=== PATIENT | female | born 1980 | race Caucasian/White ===

== ENCOUNTER 2019-07-21 22:25 | Emergency (ER) | payer OTHER ==
[2019-07-21 22:38] VITALS: BP 118/73; PULSE 72
[2019-07-21] MEDS ORDERED: Apixaban 5 MG Tab PO ONE (23:18)
--- NOTE | 2019-07-21 23:28 | EDM.PDOC ---
ED HPI GENERAL MEDICAL PROBLEM - General Chief Complaint: General Stated Complaint: leg pain Time Seen by Provider: 07/21/19 23:00 Source of Information: Reports: Patient History Limitations: Reports: No Limitations - History of Present Illness INITIAL COMMENTS - FREE TEXT/NARRATIVE: She is seen in the emergency department for evaluation of a possible blood clot in her right lower leg. She started noting some swelling and pain in the back of her right calf 4 days ago and it has gradually worsened since that time. She thought she had pulled a muscle but the pain seems to be worsening. She does have a history of superficial thrombosis in the past. No history of DVT. She denies any injury that she is aware of. No recent surgery. She did drive about 4-1/2 hours a [id number] a few weeks ago, but was fine for a least a week after that. No recent surgeries. She is a nonsmoker. No clotting disorders that she is aware of. No chest pain or tightness. No shortness of breath. She has had some cold symptoms with mild cough for a few weeks. She is otherwise without complaints. Right Lower Leg Pain Score (Numeric/FACES): 9 - Related Data Allergies Allergy/AdvReac Type Severity Reaction Status Date / Time Penicillins Allergy Hives Verified 10/01/15 20:12 Home Meds: Home Meds Albuterol Sulfate [Ventolin Hfa] 2 puff INH Q4HR PRN 10/01/15 [History] Levothyroxine Sodium [Synthroid] 175 mcg PO DAILY 10/01/15 [History] Past Medical History HEENT History: Reports: Impaired Vision Cardiovascular History: Reports: Arrhythmia, Blood Clots/VTE/DVT, Heart Murmur Respiratory History: Reports: Asthma, Bronchitis, Recurrent Gastrointestinal History: Reports: None, Cholelithiasis (with surgery as below) . Denies: Chronic Constipation, Chronic Diarrhea, Fecal Incontinence, Gastritis , GERD, GI Bleed, Hepatitis, Hiatal Hernia, Inflammatory Bowel Disease, Pancreatitis, PUD Genitourinary History: Reports: None. Denies: Chronic Renal Insuffiency, Renal Calculus, STD, Urinary Incontinence [employer] History: Reports: Spontaneous Musculoskeletal History: Reports: Fracture (right ankle at age 11). Denies: Arthritis, Fibromyalgia, Gout, Neck Pain, Chronic, Osteoarthritis, RA, SLE Neurological History: Reports: Migraines (no med needed now). Denies: Cerebral Aneurysms, Concussion, CVA, Head Trauma, Neuropathy, Peripheral, Seizure, TIA, Vertigo Endocrine/Metabolic History: Reports: Hypothyroidism. Denies: Diabetes, Type I , Diabetes, Type II, IDDM Hematologic History: Reports: None. Denies: Anemia, Blood Transfusion(s), Iron Deficiency Immunologic History: Reports: None. Denies: AIDS, HIV, SLE Oncologic (Cancer) History: Reports: Cervix (cervical atypia? no therapy in about 2012) Dermatologic History: Reports: None. Denies: Eczema, Psoriasis - Infectious Disease History Infectious Disease History: Reports: Chicken Pox - Past Surgical History HEENT Surgical History: Reports: Adenoidectomy, Oral Surgery, Tonsillectomy Female Surgical History: Reports: None, Dilitation & Evacuation - Past Imaging History Past Imaging History: Reports: Cardiac Echo, Holter Monitor, MRI, Other (See Below) Social & Family History - Tobacco Use Smoking Status *Q: Never Smoker Second Hand Smoke Exposure: No - Caffeine Use Caffeine Use: Reports: Coffee - Recreational Drug Use Recreational Drug Use: No - Living Situation & Occupation Living situation: Reports: , with Family Occupation: Unemployed ED ROS GENERAL - Review of Systems Review Of Systems: See Below Constitutional: Denies: Fever, Chills, Diaphoresis HEENT: Reports: No Symptoms Respiratory: Reports: Cough. Denies: Shortness of Breath, Pleuritic Chest Pain , Sputum Cardiovascular: Denies: Chest Pain, Lightheadedness, Palpitations Endocrine: Reports: No Symptoms, Fatigue GI/Abdominal: Reports: Nausea. Denies: Abdominal Pain, Constipation, Diarrhea, Vomiting : Denies: Dysuria, Frequency, Urgency Musculoskeletal: Reports: Leg Pain Skin: Reports: No Symptoms Neurological: Reports: No Symptoms Psychiatric: Reports: No Symptoms Hematologic/Lymphatic: Reports: No Symptoms Immunologic: Reports: No Symptoms ED EXAM, GENERAL - Physical Exam Exam: See Below Exam Limited By: No Limitations General Appearance: Alert, WD/WN, No Apparent Distress Respiratory/Chest: No Respiratory Distress, Lungs Clear, Normal Breath Sounds Cardiovascular: Regular Rate, Rhythm, No Edema, No Gallop, No Murmur, No Rub Extremities: Savannah's Sign, Other (mild diffuse swelling in the right calf. Diffuse tenderness over the posterior aspect of the lower leg. At no point tenderness. No palpable defect. No redness or warmth to touch.). No: Increased Warmth, Redness Neurological: Alert, Oriented Psychiatric: Normal Affect, Normal Mood Skin Exam: Warm, Dry, Normal Color Course - Vital Signs Last Recorded V/S: Last Vital Signs Temp 35.8 C 07/21/19 22:28 Pulse 72 07/21/19 22:28 Resp 16 07/21/19 22:28 BP 118/73 07/21/19 22:28 Pulse Ox 100 07/21/19 22:28 - Orders/Labs/Meds Orders: Active Orders 24 hr Category Date Time Status Apixaban [Eliquis] Med 07/21/19 23:18 Once 10 mg PO ONETIME ONE Medication Orders Apixaban (Eliquis) 10 mg PO ONETIME ONE Stop: 07/21/19 23:19 Meds: Medications Generic Name Dose Route Start Last Admin Trade Name Freq PRN Reason Stop Dose Admin Apixaban 10 mg 07/21/19 23:18 Eliquis PO 07/21/19 23:19 ONETIME ONE Departure - Departure Time of Disposition: 23:25 Disposition: Home, Self-Care 01 Condition: Good Clinical Impression: Pain in right lower leg - Discharge Information *PRESCRIPTION DRUG MONITORING PROGRAM REVIEWED*: No *COPY OF PRESCRIPTION DRUG MONITORING REPORT IN PATIENT FABY: No Referrals: Melissa Barahona PA-C [Primary Care Provider] - Additional Instructions: Right lower extremity ultrasound tomorrow morning. Keep leg elevated as much as possible. Sepsis Event Note - Evaluation Sepsis Screening Result: No Definite Risk - Focused Exam Vital Signs: Vital Signs Temp Pulse Resp BP Pulse Ox 07/21/19 22:28 35.8 C 72 16 118/73 100 Date Exam was Performed: 07/21/19 Time Exam was Performed: 23:21 - My Orders Last 24 Hours: My Active Orders 07/21/19 23:18 Apixaban [Eliquis] 10 mg PO ONETIME ONE - Assessment/Plan Last 24 Hours: My Active Orders 07/21/19 23:18 Apixaban [Eliquis] 10 mg PO ONETIME ONE
== END 2019-07-21 23:45 | disposition home or self-care (01) ==
LOC: LL.ED 22:25
DX: M79.661 Pain in right lower leg (principal); J45.909 Unspecified asthma, uncomplicated; E03.9 Hypothyroidism, unspecified; Z88.0 Allergy status to penicillin; Z79.890 Hormone replacement therapy; Z79.899 Other long term (current) drug therapy
CPT/HCPCS: 99283; A9270-GY